=== PATIENT | female | born 2000 | race Two or more races ===

== ENCOUNTER 2020-11-27 15:34 | Emergency (ER) | payer MEDICAID, OTHER ==
[~2020-11-27] VITALS: Ht 172.7 cm; Wt 90.7 kg
[2020-11-27] MEDS ORDERED: ACETAMINOPHEN 325 MG TAB PO ONE (17:15)
[2020-11-27] MEDS ORDERED: SODIUM CHLORIDE 0.9% 1,000 ML IVB ONE (17:15)
[2020-11-27 17:22] LABS: Basophils # (auto) 0.1 10 ^3/uL (0-0.2); Basophils % (auto) 0.8 % (0.0-2.0); Eosinophils # (auto) 0.3 10 ^3/uL (0-0.8); Eosinophils % (auto) 3.1 % (0.0-7.0); Hematocrit 37.6 % (36.0-46.0); Hemoglobin 12.7 g/dL (12.2-16.2); Lymphocytes # (auto) 1.6 10 ^3/uL (0.4-5.4); Mean Corpuscular Hemoglobin 28.7 pg (28.0-32.0); Mean Corpuscular Hgb Conc. 33.7 g/dL (32.0-36.0); Mean Corpuscular Volume 85.3 fL (80.0-100.0); Monocytes % (auto) 11.2 % (0.0-12.0); Neutrophils # (auto) 5.8 10 ^3/uL (1.6-8.6); Neutrophils % (auto) 66.9 % (37.0-80.0); Nucleated Red Blood Cells % 0.2 %; Platelet Count (auto) 308 10^3/uL (140-450); Red Blood Cells 4.41 10^6/uL (4.0-5.20); Red Cell Distribution Width 13.5 % (11.8-14.3); White Blood Cell 8.7 10^3/uL (4.4-10.8)
[2020-11-27 17:33] LABS: Blood Alcohol < 3.0 mg/dL (0-5); Magnesium 2.3 mg/dL (1.6-2.6)
[2020-11-27 17:35] LABS: Albumin 3.6 g/dL (3.4-5.0); Potassium 3.5 mmol/L (3.5-5.1)
[2020-11-27 17:38] LABS: Bilirubin, Total 0.4 mg/dL (0.2-1.0); Total Protein 7.4 g/dL (6.4-8.2)
[2020-11-27 19:52] VITALS: BP 137/81
== END 2020-11-27 22:19 | disposition home or self-care (01) ==
LOC: EDBD 15:34 → ER 15:34
DX: G40.909 Epilepsy, unspecified, not intractable, without status epilepticus (principal); R51.9 Headache, unspecified; R42 Dizziness and giddiness
CPT/HCPCS: 36415; 70450; 71045; 72125; 80053; 80320; 83735; 85025; 96360; 96361; 99285; J7030